=== PATIENT | male | born 1985 | race Asian ===

== ENCOUNTER 2018-07-19 00:24 | Emergency (ER) | payer OTHER ==
--- NOTE | 2018-07-19 01:03 | ED ---
Skin Complaint - HPI Summary HPI Summary: 32-year-old male presents with tick bite to his left lower back. States he discovered it earlier this evening but has been unable to remove it due to its location. States he is sure that it has been attached for less than 24 hours. Not engorged. Denies fever, chills, flulike illness, rash, myalgias, joint pain or swelling. - History of Current Complaint Chief Complaint: EDAnimalBite Time Seen by Provider: 07/19/18 00:58 Stated Complaint: TICK IN MY BACK PER PT Pain Intensity: 0 - Allergy/Home Medications Allergies/Adverse Reactions: Allergies Allergy/AdvReac Type Severity Reaction Status Date / Time Penicillins Allergy Rash Verified 07/19/18 00:29 PMH/Surg Hx/FS Hx/Imm Hx Previously Healthy: Yes - Denies significant PMH - Surgical History Surgery Procedure, Year, and Place: None - Immunization History Immunizations Up to Date: Yes Infectious Disease History: No Infectious Disease History: Denies: Traveled Outside the [place] in Last 30 Days - Family History Known Family History: Positive: Non-Contributory - Social History Occupation: Student Lives: With Family Review of Systems Negative: Fever, Chills Cardiovascular: Negative Respiratory: Negative Gastrointestinal: Negative Genitourinary: Negative Musculoskeletal: Negative Negative: Arthralgia, Myalgia Skin: Other - See HPI Negative: Rash Neurological: Negative All Other Systems Reviewed And Are Negative: Yes Physical Exam - Summary Physical Exam Summary: GENERAL APPEARANCE: Well developed, well nourished, alert and cooperative, and appears to be in no acute distress. CARDIAC: Normal S1 and S2. No S3, S4 or murmurs. Rhythm is regular. There is no peripheral edema, cyanosis or pallor. Extremities are warm and well perfused. Capillary refill is less than 2 seconds. Peripheral pulses intact. LUNGS: Clear to auscultation without rales, rhonchi, wheezing or diminished breath sounds. ABDOMEN: Positive bowel sounds. Soft, nondistended, nontender. No guarding or rebound. No masses or hepatosplenomegally. MUSKULOSKELETAL: ROM intact to all extremities. No joint erythema or tenderness. Normal muscular development. Normal gait. SKIN: Skin normal color, texture and turgor. Embedded nymphal deer tick to left lower back. Not engorged. Mild erythema at the site of the bite. Tick was removed in it's entirity using a Tick Twister. Triage Information Reviewed: Yes Vital Signs On Initial Exam: Initial Vitals Temp Pulse Resp BP Pulse Ox 97.9 F 100 16 128/96 97 07/19/18 00:26 07/19/18 00:26 07/19/18 00:26 07/19/18 00:26 07/19/18 00:26 Vital Signs Reviewed: Yes Diagnostics - Vital Signs Vital Signs Temp Pulse Resp BP Pulse Ox 07/19/18 00:26 97.9 F 100 16 128/96 97 - Laboratory Lab Statement: Any lab studies that have been ordered have been reviewed, and results considered in the medical decision making process. Course/Dx - Course Course Of Treatment: 32-year-old male presents with tick bite to his left lower back. States he discovered it earlier this evening but has been unable to remove it due to its location. States he is sure that it has been attached for less than 24 hours. Not engorged. Denies fever, chills, flulike illness, rash, myalgias, joint pain or swelling. Afebrile. VSS. Patient has embedded nymphal deer tick to left lower back. Not engorged. Mild erythema at the site of the bite. Tick was removed by myself in its entirity using a Tick Twister. Discussed with patient that he does not meet the criteria for prophylactic antibiotics. Recommending watchful waiting. Reviewed signs and symtoms of Lyme disease, provided anticipatory guidance, warning symptoms. He is to follow up with [facility] or PCP as needed. Verbalizes understanding and agrees with POC. - Differential Diagnoses - Skin Complaint Differential Diagnoses: Local Allergic Reaction, Tick Born Illness - Diagnoses Provider Diagnoses: Tick bite of back Discharge - Sign-Out/Discharge Documenting (check all that apply): Patient Departure Patient Received Moderate/Deep Sedation with Procedure: No - Discharge Plan Condition: Stable Disposition: HOME Patient Education Materials: Tick Bite (ED) Referrals: No Primary Care Phys,NOPCP [Primary Care Provider] - [facility] [Provider Group] - If Needed Additional Instructions: Ticks transmit infection only after they have attached and then taken a blood meal from their new host. A tick that has not attached cannot not pass any infection. Since the deer tick that transmits Lyme disease typically feeds for more than 36 hours before transmitting the organisim that causes Lyme disease, the risk of acquiring Lyme disease from an tick bite is only 1.2 to 1.4 percent , even in an area where the disease is common. There is no benefit of blood testing for Lyme disease at the time of the tick bite because even people who become infected will not have a positive blood test until approximately two to six weeks after the tick bite. To try to avoid getting bitten by a tick, you can: * Wear shoes, long-sleeved shirts, and long pants when you go outside. Keep ticks away from your skin by tucking your pants into your socks. * Wear light colors so you can spot any ticks that get on your clothes. * Wear bug spray or cream that contains DEET. (Do not use DEET on babies younger than 2 months.) On your clothes and gear, you can use bug repellents that have a chemical called "permethrin." * Shower within 2 hours of being outdoors if you think you have been in an area where there are ticks. * Put dry clothes briefly (for about 4 minutes) in a dryer after being outdoors. * Check your clothes and body for ticks after being outdoors. Be sure to check your scalp, waist, armpits, groin, and backs of your knees. Check your children , too. After a tick bite, you will need to monitor for signs of Lyme disease over the nexter several weeks even if you have been given antibiotics to prevent the infection. Seek immediate medical attention if you develop a bullseye rash, fever, flu-like symptoms including headache, stiff neck, fatigue, muscle aches, joint pain or swelling. - Billing Disposition and Condition Condition: STABLE Disposition: Home
[2018-07-19 01:19] VITALS: BP 157/88
== END 2018-07-19 01:09 | disposition home or self-care (01) ==
LOC: ED 00:24
DX: S30.860A Insect bite (nonvenomous) of lower back and pelvis, initial encounter (principal); M54.5 Low back pain; W57.XXXA Bitten or stung by nonvenomous insect and other nonvenomous arthropods, initial encounter; Y92.9 Unspecified place or not applicable
CPT/HCPCS: 99281

== ENCOUNTER 2019-03-30 13:28 | Emergency (ER) | payer OTHER ==
--- NOTE | 2019-03-30 15:25 | UC ---
Elbow Pain - History of Current Complaint Chief Complaint: UCUpperExtremity Stated Complaint: RT ARM INJURY Time Seen by Provider: 03/30/19 15:18 Pain Intensity: 2 - Allergies/Home Medications Allergies/Adverse Reactions: Allergies Allergy/AdvReac Type Severity Reaction Status Date / Time Penicillins Allergy Rash Verified 03/30/19 14:26 Home Medications: Home Medications NK [No Home Medications Reported] 03/30/19 [History Confirmed 03/30/19] PMH/Surg Hx/FS Hx/Imm Hx - Surgical History Surgical History: None Surgery Procedure, Year, and Place: None - Family History Known Family History: Positive: Non-Contributory - Social History Alcohol Use: None Substance Use Type: None Smoking Status (MU): Never Smoked Tobacco Physical Exam Vital Signs: Initial Vital Signs Temp 98.4 F 03/30/19 14:21 Pulse 95 03/30/19 14:21 Resp 16 03/30/19 14:21 BP 132/81 03/30/19 14:21 Pulse Ox 100 03/30/19 14:21 Discharge ED - Discharge Plan Referrals: No Primary Care Phys,NOPCP [Primary Care Provider] -
--- NOTE | 2019-03-30 15:26 | UC ---
Upper Extremity HPI - HPI Summary HPI Summary: 33 y/o male presents to the urgent care c/o RT elbow and forearm elbow pain s/ p slipping on the street and twisting his right arm and catching himself w/ his RT arm to prevent falling this morning around 11;30AM. Pt states street was wet and his sneaker very slippery. His laterasl side of his Rt elbow is swollen and very painful w/ certain movement. Pain is 6/10 radiating to his RT forearm, denies numbness or tingling sensation over the RT extremity, breaks in the skin, fever, SOB, chest pain, abdominal pain, N/V/D. He applied ice, but has not taken any medications. He is RT hand dominant. denies previous injury to that arm. - History of Current Complaint Chief Complaint: UCUpperExtremity Stated Complaint: RT ARM INJURY Time Seen by Provider: 03/30/19 15:18 Hx Obtained From: Patient Onset/Duration: Gradual Onset, Lasting Hours - 2 hrs ago Severity Initially: Moderate Severity Currently: Moderate Pain Intensity: 6 - movement Pain Scale Used: 0-10 Numeric Location Of Pain: Is Discrete @ - lateral side of rt elbow pain and swelling, Radiates To - RT forearm Aggravating Factor(s): Movement, Lifting, Extension Alleviating Factor(s): Ice Associated Signs And Symptoms: Positive: Swelling. Negative: Bruising, Fever, Weakness, Numbness/Tingling, Other Related History: Dominant Hand Right - Risk Factors Non-Orthopedic Risk Factor: Negative DVT Risk Factors: Negative Septic Arthritis Risk Factor: Negative - Allergies/Home Medications Allergies/Adverse Reactions: Allergies Allergy/AdvReac Type Severity Reaction Status Date / Time Penicillins Allergy Rash Verified 03/30/19 14:26 PMH/Surg Hx/FS Hx/Imm Hx Previously Healthy: Yes - Pt denies PMHX - Surgical History Surgical History: None Surgery Procedure, Year, and Place: None - Family History Known Family History: Positive: None - Pt denies FMHX, Non-Contributory - Social History Occupation: Employed Full-time Lives: With Family Alcohol Use: None Substance Use Type: None Smoking Status (MU): Never Smoked Tobacco Review of Systems All Other Systems Reviewed And Are Negative: Yes Constitutional: Positive: Negative Skin: Positive: Other - swelling of RT elbow Eyes: Positive: Negative ENT: Positive: Negative Respiratory: Positive: Negative Cardiovascular: Positive: Negative Gastrointestinal: Positive: Negative Genitourinary: Positive: Negative Motor: Positive: Negative Neurovascular: Positive: Negative Musculoskeletal: Positive: Decreased ROM - RT elbow and forearm, Other: - RT elbow and forearm pain and swelling s/p fall Neurological: Positive: Negative Psychological: Positive: Negative Is Patient Immunocompromised?: No Physical Exam - Summary Physical Exam Summary: Vital Signs Reviewed: Yes General: well developed, well nourished male sitting in the examining table w/o any apparent distress. Eyes: Positive: Conjunctiva Clear - PERRLA, EOMI, ENT: Positive: Normal ENT inspection, Hearing grossly normal, Pharynx normal, TMs normal - B/L, Uvula midline Neck: Positive: Supple, Nontender, No Lymphadenopathy Respiratory: Positive: Chest non-tender, Lungs clear, Normal breath sounds, No respiratory distress, No accessory muscle use Cardiovascular: Positive: RRR, No Murmur, Pulses Normal, Brisk Capillary Refill Abdomen Description: Positive: Nontender, No Organomegaly, Soft. Negative: CVA Tenderness (R), CVA Tenderness (L) Bowel Sounds: Positive: Present Musculoskeletal: Positive: Strength Intact,RT Elbow: The R elbow is with mild deformity on the lateral side when compared to the L elbow. No obvious surface trauma, ecchymosis, mild soft tissue swelling. Point tenderness to palpation of the lateral and medial epicondyle, no tenderness on olecranon,and radial head. No epicondylar or axillary lymphadenopathy. Decreased ROM due to pain. Muscle strength. Intact motor and sensation of ulnar, median, and radial nerves. Neurological: Positive: Alert, Muscle Tone Normal Psychological Exam: Normal Skin Exam: Normal Triage Information Reviewed: Yes Vital Signs: Initial Vital Signs Temp 98.4 F 03/30/19 14:21 Pulse 95 03/30/19 14:21 Resp 16 03/30/19 14:21 BP 132/81 03/30/19 14:21 Pulse Ox 100 03/30/19 14:21 Upper Extremity Course/Dx - Course Course Of Treatment: 33 y/o male presents to the urgent care c/o RT elbow and forearm elbow pain s/ p slipping on the street and twisting his right arm and catching himself w/ his RT arm to prevent falling this morning around 11;30AM. Pt states street was wet and his sneaker very slippery. His lateral side of his Rt elbow is swollen and very painful w/ certain movement. Pain is 6/10 radiating to his RT forearm, denies numbness or tingling sensation over the RT extremity, breaks in the skin, fever, SOB, chest pain, abdominal pain, N/V/D. He applied ice, but has not taken any medications. He is RT hand dominant. denies previous injury to that arm. Pt with ulnar side of elbow w/ tenderness and soft tissue swelling with mild deformity on examination. RT wrist, forearm and elbow X-ray ordered, IMPRESSION : PROBABLE NONDISPLACED FRACTURE OF THE CORONOID PROCESS OF THE ULNA. X-ray results discussed with DR Blackburn who recommends a posterior splint. Left elbow immobilized with posterior splint and Pt given a shoulder sling and Pt Rx Ibuprofen PO alleviate pain and swelling. First dose given at the clinic by nurse. PT strongly advised to f/u with Orthopedic DR Doan in 1-2 days for further evaluation and treatment. Also advised RICE, and D/C instructions explained. Pt understood and agreed with plan of care. Pt left the clinic ambulating - Differential Dx/Diagnosis Differential Diagnosis/HQI/PQRI: Contusion, Fracture (Closed), Strain, Sprain Provider Diagnosis: Fracture of right elbow, Injury of right elbow Discharge ED - Sign-Out/Discharge Documenting (check all that apply): Patient Departure - D/C home All imaging exams completed and their final reports reviewed: Yes - Discharge Plan Condition: Stable Disposition: HOME Prescriptions: Ibuprofen TAB* [Motrin TAB* 800 MG] 800 mg PO Q6H PRN #30 tab PRN Reason: moderate pain Patient Education Materials: Elbow Fracture (ED) Forms: *Work Release Referrals: [facility] [place] PH[facility]ICIAN REFERRAL [Outside] - 2 Days Chandu Doan MD [Medical Doctor] - 1 Day Additional Instructions: 1-Please continue taking Ibuprofen PO q6-8hrs prn after meals as directed to alleviate pain and swelling. 2-Please apply ice, keep your elbow immobilized with the splint and shoulder sling. Avoid strenuous exercise of heavy lifting 3- Please f/u with Orthopedic DR Doan in 1-2 days for further evaluation and treatment on your elbow fracture. - Billing Disposition and Condition Condition: STABLE Disposition: Home
[2019-03-30 16:39] VITALS: BP 118/74
== END 2019-03-30 16:30 | disposition home or self-care (01) ==
LOC: UCEAST 13:28
DX: S42.401A Unspecified fracture of lower end of right humerus, initial encounter for closed fracture (principal); S59.801A Other specified injuries of right elbow, initial encounter; Z88.0 Allergy status to penicillin; X50.0XXA Overexertion from strenuous movement or load, initial encounter; Y92.9 Unspecified place or not applicable
CPT/HCPCS: 99213; G0463